=== PATIENT | male | born 1955 | race Caucasian/White ===

== ENCOUNTER 2018-11-05 19:10 | Emergency (ER) | payer BC, OTHER ==
[2018-11-05 19:59] VITALS: BP 146/87; PULSE 55
[2018-11-05] MEDS ORDERED: HYDROmorphone 1 MG/ML Syringe IM ONE (20:17)
[2018-11-05] MEDS ORDERED: Ondansetron 4 MG Tab.DIS PO ONE (20:17)
--- NOTE | 2018-11-05 20:32 | EDM.PDOC ---
ED HPI GENERAL MEDICAL PROBLEM - General Chief Complaint: Upper Extremity Injury/Pain Stated Complaint: RT SHOULDER PAIN Time Seen by Provider: 11/05/18 20:00 Source of Information: Reports: Patient, Family () History Limitations: Reports: No Limitations - History of Present Illness INITIAL COMMENTS - FREE TEXT/NARRATIVE: Chief complaint: Upper back and shoulder pain This is a 63 year old male presents to the ER with his . Reports he was in [facility] two days ago, got Motrin and Flexeril, x-rays of neck and back, here this evening because he can no longer stand the pain. Denies any injury to back or falls. denies any chest pain, shortness of breath, abdominal pain, nausea, vomiting, flanks or dysuria or fever or chills or tick bites. He says," he is retired". says," he has been working" . Then Edhazel reports he has been remodeling the house, putting up knotty pine tongue and groove 1 x 6's for the past week all by himself. And then reports this is similar to a previous back strain. He has a bad back. Onset: Gradual Duration: Day(s):, Getting Worse, Waxing/Waning Location: Reports: Back Quality: Reports: Same as Previous Episode, Sharp (rates pain at 7 or 8 ) Severity: Severe Improves with: Reports: None Worsens with: Reports: Movement Context: Reports: Other (lifting, bending and twisting of the spine) Associated Symptoms: Reports: No Other Symptoms Treatments SCRAP BALER: Reports: Acetaminophen, Cold Therapy, NSAIDS Right Shoulder Pain Score (Numeric/FACES): 8 - Related Data Allergies Allergy/AdvReac Type Severity Reaction Status Date / Time No Known Allergies Allergy Verified 11/05/18 19:59 Home Meds: Home Meds Cyclobenzaprine [Flexeril] 10 mg PO TID 11/05/18 [History] Ibuprofen 800 mg PO BID 11/05/18 [History] Past Medical History HEENT History: Reports: Macular Degeneration Musculoskeletal History: Reports: Back Pain, Chronic Other Musculoskeletal History: 5 and 6 degentrative disc - Infectious Disease History Infectious Disease History: Reports: Chicken Pox, Influenza - Past Surgical History Musculoskeletal Surgical History: Reports: Arthroscopic Knee Social & Family History - Tobacco Use Smoking Status *Q: Never Smoker - Caffeine Use Caffeine Use: Reports: Coffee - Recreational Drug Use Recreational Drug Use: No - Living Situation & Occupation Living situation: Reports: Occupation: Retired Review of Systems - Review of Systems Review Of Systems: See Below Constitutional: Reports: Other (acute back pain) Eyes: Reports: No Symptoms Ears: Reports: No Symptoms Nose: Reports: No Symptoms Mouth/Throat: Reports: No Symptoms Respiratory: Reports: No Symptoms Cardiovascular: Reports: No Symptoms GI/Abdominal: Reports: No Symptoms Genitourinary: Reports: No Symptoms Musculoskeletal: Reports: Neck Pain, Shoulder Pain, Muscle Pain Skin: Reports: No Symptoms Neurological: Reports: No Symptoms Psychiatric: Reports: No Symptoms ED EXAM, GENERAL - Physical Exam Exam: See Below Exam Limited By: No Limitations General Appearance: Alert, WD/WN, Moderate Distress (walking stiffly. ), Thin Eye Exam: Bilateral Eye: EOMI Nose: Normal Inspection Throat/Mouth: Normal Inspection, Normal Lips Head: Atraumatic, Normocephalic Neck: Normal Inspection, Supple, Non-Tender Respiratory/Chest: No Respiratory Distress, Lungs Clear, Normal Breath Sounds, No Accessory Muscle Use, Chest Non-Tender Cardiovascular: Normal Peripheral Pulses, Regular Rate, Rhythm, No Edema, No JVD , No Murmur Peripheral Pulses: 2+: Radial (L), Radial (R) GI/Abdominal: Normal Bowel Sounds, Soft, Non-Tender, No Organomegaly, No Distention, No Abnormal Bruit, No Mass, Pelvis Stable Back Exam: Normal Inspection, Full Range of Motion (has full ROM but has increased pain with movement), Muscle Spasm (T-spine) Extremities: Normal Inspection, Normal Range of Motion, Non-Tender, No Pedal Edema, Normal Capillary Refill Neurological: Alert, Oriented, CN II-XII Intact, Normal Cognition, Normal Gait, Normal Reflexes, No Motor/Sensory Deficits, Sensory/Motor Deficit Psychiatric: Normal Affect Skin Exam: Warm, Dry, Intact, Normal Color, No Rash Lymphatic: Adenopathy Course - Vital Signs Last Recorded V/S: Last Vital Signs Temp 36.3 C 11/05/18 19:57 Pulse 55 L 11/05/18 19:57 Resp 18 11/05/18 19:57 BP 146/87 H 11/05/18 19:57 Pulse Ox 97 11/05/18 19:57 - Orders/Labs/Meds Meds: Medications Discontinued Medications Generic Name Dose Route Start Last Admin Trade Name Benji PRN Reason Stop Dose Admin Hydromorphone HCl 1 mg 11/05/18 20:17 11/05/18 20:28 Dilaudid IM 11/05/18 20:18 1 mg ONETIME ONE Administration Ondansetron HCl 4 mg 11/05/18 20:17 11/05/18 20:28 Zofran Odt PO 11/05/18 20:18 4 mg ONETIME ONE Administration - Re-Assessments/Exams Free Text/Narrative Re-Assessment/Exam: 11/05/18 20:48 given Dilaudid 1 mg IM and Zofran 4 mg odt pain controlled. improved. will discharge to home, follow up in Primary Care. medications given for pain control at home. Departure - Departure Time of Disposition: 20:50 Disposition: Home, Self-Care 01 Condition: Good Clinical Impression: Upper back strain Qualifiers: Encounter type: initial encounter Qualified Code(s): S29.012A - Strain of muscle and tendon of back wall of thorax, initial encounter - Discharge Information *PRESCRIPTION DRUG MONITORING PROGRAM REVIEWED*: No *COPY OF PRESCRIPTION DRUG MONITORING REPORT IN PATIENT KALYANI: No Instructions: Muscle Strain, [id number] Referrals: PCP,None [Primary Care Provider] - Forms: ED Department Discharge Care Plan Goals: Upper Back Strain -Hydrocodone pain medication take one every 4 to 6 hours for acute pain, may take one at 0200 or in the morning -Cyclobenzaprine 10mg take one every 8 hours as needed for muscle spasm. start in morning. -Prednisone 10mg take two tablet in morning and evening for 5 days, start first dose tonight -may continue Motrin every 8 hours as needed for less acute pain rest your back, no lifting over 10 pounds for the next 5 days, no bending, lifting or twisting of spine for 5 days follow-up with Primary Care Doctor for recheck in 3 to 5 days Return to ER for any increased pain, fever, chills, nausea, vomiting, rash or not improved. - - Problem List & Annotations (1) Upper back strain SNOMED Code(s): 847843116, 826190812 Code(s): S29.012A - STRAIN OF MUSCLE AND TENDON OF BACK WALL OF THORAX, INIT Status: Acute Priority: High Current Visit: Yes Qualifiers: Encounter type: initial encounter Qualified Code(s): S29.012A - Strain of muscle and tendon of back wall of thorax, initial encounter - Problem List Review Problem List Initiated/Reviewed/Updated: Yes - My Orders Last 24 Hours: Upper Back Strain -Hydrocodone pain medication take one every 4 to 6 hours for acute pain, may take one at 0200 or in the morning -Cyclobenzaprine 10mg take one every 8 hours as needed for muscle spasm. start in morning. -Prednisone 10mg take two tablet in morning and evening for 5 days, start first dose tonight -may continue Motrin every 8 hours as needed for less acute pain rest your back, no lifting over 10 pounds for the next 5 days, no bending, lifting or twisting of spine for 5 days follow-up with Primary Care Doctor for recheck in 3 to 5 days Return to ER for any increased pain, fever, chills, nausea, vomiting, rash or not improved. -
== END 2018-11-05 20:57 | disposition home or self-care (01) ==
LOC: JP.ED 19:10
DX: S29.012A Strain of muscle and tendon of back wall of thorax, initial encounter (principal); Z79.899 Other long term (current) drug therapy; X50.0XXA Overexertion from strenuous movement or load, initial encounter
CPT/HCPCS: 96372; 99283; A9270; J1170

== ENCOUNTER 2021-11-17 08:35 | Day surgery (SDC) | payer MEDICARE, OTHER ==
[2021-11-17] MEDS ORDERED: Lactated Ringers 1,000 ML IV SCH (09:15)
[2021-11-17] MEDS ORDERED: Midazolam 1 MG/ML 2 ML SDV ONE (09:17)
[2021-11-17] MEDS ORDERED: Propofol 200 MG/20 ML SDV ONE ×2 (09:17→11:04)
[2021-11-17] MEDS ORDERED: fentaNYL 100 MCG/2 ML SDV ONE (09:17)
[2021-11-17 12:15] VITALS: BP 136/97; PULSE 55
== END 2021-11-17 12:30 | disposition home or self-care (01) ==
LOC: JP.SDS 08:35
PROVIDERS: ATTEND Family Medicine
DX: Z12.11 Encounter for screening for malignant neoplasm of colon (principal); K22.70 Barrett's esophagus without dysplasia; K20.90 Esophagitis, unspecified without bleeding; K29.80 Duodenitis without bleeding
CPT/HCPCS: 43239; G0121; J2250; J2704; J3010; J7120

== ENCOUNTER 2021-11-24 20:32 | Emergency (ER) | payer MEDICARE, OTHER ==
[2021-11-24 21:44] LABS: ESTIMATED GFR 75 mL/min (>60)
[2021-11-24] MEDS ORDERED: Sodium Chloride 0.9% 10 ML Syringe FLUSH PRN (22:17)
[2021-11-24] MEDS ORDERED: Iopamidol 612 MG/ML 100 ML Bottle IV SCH (22:30)
[2021-11-24] MEDS ORDERED: Sodium Chloride 0.9% 75 ML IV SCH (22:30)
[2021-11-24] MEDS ORDERED: Acetaminophen 325 MG Tab PO ONE (22:57)
[2021-11-24] MEDS ORDERED: Acetaminophen 325 MG Tab ONE (23:00)
[2021-11-24] MEDS ORDERED: Levofloxacin/Dextrose 5%-Water 750 MG in Premix Bag 1 BAG IV ONE (23:57)
[2021-11-25 00:16] VITALS: BP 122/66; PULSE 79
== END 2021-11-25 01:50 | disposition home or self-care (01) ==
LOC: JP.ED 20:32
DX: J18.9 Pneumonia, unspecified organism (principal); Z86.16 Personal history of COVID-19; Z20.822 Contact with and (suspected) exposure to COVID-19
CPT/HCPCS: 36415; 71275; 80053; 82728; 83605; 83615; 84145; 85025; 85379; 86140; 96365; 96366; 99284; A9270; J1956; J3490; Q9967; U0002; 99282

== ENCOUNTER 2023-04-04 14:22 | Emergency (ER) | payer MEDICARE, OTHER ==
[2023-04-04 14:40] VITALS: BP 133/76; PULSE 71
[2023-04-04] MEDS ORDERED: Diphtheria,Pertussis(Acell),Tetanus Vaccine 0.5 ML Syringe IM ONE (15:17)
[2023-04-04] MEDS ORDERED: Bacitracin Oint 1 GM U/D Packet TOP ONE (15:37)
[2023-04-04] MEDS ORDERED: Lidocaine 1% with EPINEPHrine 1:100,000 50 ML MDV INFILT ONE (15:37)
== END 2023-04-04 17:07 | disposition home or self-care (01) ==
LOC: JP.ED 14:22
DX: S81.812A Laceration without foreign body, left lower leg, initial encounter (principal); W26.8XXA Contact with other sharp object(s), not elsewhere classified, initial encounter; Z86.16 Personal history of COVID-19; Z23 Encounter for immunization
CPT/HCPCS: 12002; 90471; 90715; 99282-25